=== PATIENT | female | born 1930 | race Caucasian/White ===

== ENCOUNTER 2017-02-05 14:03 | Outpatient (CLI) | payer MEDICARE, OTHER ==
--- NOTE | 2017-02-06 16:14 | Mammography Report ---
DIGITAL BILATERAL SCREENING MAMMOGRAM: 02/05/2017 COMPARISON: Mammogram of 02/05/2016. INDICATION: Screening mammography. TECHNIQUE: Routine CC and MLO projections were obtained of the breasts. FINDINGS: Scattered fibroglandular tissue is present within the breasts. There are no dominant elinor s, suspicious microcalcifications, or secondary signs of malignancy. In comparison to the previous st udies, there are no significant changes. ASSESSMENT: NO MAMMOGRAPHIC EVIDENCE OF MALIGNANCY. NO SIGNIFICANT INTERVAL CHANGES. RECOMMENDATION: Screening mammography is recommended annually. BIRADS category 1 - negative. STANDARD QUALIFYING STATEMENTS 1. This examination was reviewed with the aid of Computed-Aided Detection (CAD). 2. A negative or benign imaging report should not delay biopsy if clinically suspicious findings are present. Consider surgical consultation if warranted. More than 5% of cancers are not identified by i maging. 3. Dense breasts may obscure an underlying neoplasm. JOB #: [id number] EXT JOB #:[id number]
== END 2017-02-05 14:04 | disposition home or self-care (01) ==
LOC: DI.S 14:03
PROVIDERS: ATTEND Internal Medicine
DX: Z12.31 Encounter for screening mammogram for malignant neoplasm of breast (principal)
CPT/HCPCS: 77067

== ENCOUNTER 2018-02-19 17:13 | Outpatient (CLI) | payer MEDICARE, OTHER | END 2018-02-19 17:14 | disposition EMS.NT | LOC: EMS 17:13 | PROVIDERS: ATTEND Surgery | DX: Z04.1 Encounter for examination and observation following transport accident (principal) ==

== ENCOUNTER 2018-08-11 12:27 | Outpatient (CLI) | payer MEDICARE, OTHER ==
--- NOTE | 2018-08-11 17:36 | XRAY Report ---
Reason: CHEST PA LAT Procedure Date: 08/11/2018 Accession Number: [id number] / [id number] Procedure: XR - Chest 2 View X-Ray CPT Code: 60646 FULL RESULT: EXAM: CHEST RADIOGRAPHY EXAM DATE: 08/11/2018 01:13 PM. CLINICAL HISTORY: Nonproductive cough. COMPARISON: XR CHEST PA /LAT 12/10/2005 7:18 PM. TECHNIQUE: 2 views. FINDINGS: Lungs/Pleura: Right perihilar and right middle lobe airspace opacities are new from prior study. Clear left lung. No pneumothorax or effusion. Mediastinum: Normal heart size and mildly tortuous thoracic aorta. Other: None. IMPRESSION: Right perihilar and middle lobe airspace opacities, suspicious for pneumonia. Post treatment chest necessary to ensure clearance and to exclude underlying neoplasm. RADIA
== END 2018-08-11 12:28 | disposition home or self-care (01) ==
LOC: DI 12:27
PROVIDERS: ATTEND Internal Medicine
DX: R91.8 Other nonspecific abnormal finding of lung field (principal)
CPT/HCPCS: 71046

== ENCOUNTER 2018-08-16 09:17 | Outpatient (CLI) | payer MEDICARE, OTHER ==
--- NOTE | 2018-08-16 11:44 | Mammography Report ---
Reason: SCREENING MAMMO Procedure Date: 08/16/2018 Accession Number: [id number] / [id number] Procedure: JOESPHINE - Screening Mammo w/Eyal CPT Code: FULL RESULT: EXAM: Screening Mammo w/Eyal DATE: 08/16/2018 10:02 AM CLINICAL HISTORY: Screening examination. Family history of breast cancer in the sister at age 56. TECHNIQUE: (B) - Bilateral CC and MLO views were obtained. COMPARISON: 02/05/2017 through 02/11/2013. PARENCHYMAL PATTERN: (F) - The breast(s) demonstrate(s) diffuse fatty replacement. FINDINGS: There are no suspicious masses, calcifications, or areas of distortion. IMPRESSION: Negative examination. BI-RADS category 1. RECOMMENDATION: (ANNUAL) - Recommend routine annual screening mammography. BI-RADS CATEGORY: (1) - Negative. STANDARD QUALIFYING STATEMENTS: 1. This examination was not reviewed with the aid of Computer-Aided Detection (CAD). 2. A negative or benign imaging report should not preclude biopsy if clinically suspicious findings are present. 3. Dense breasts may obscure an underlying neoplasm. 4. This examination was reviewed with the aid of 3D breast imaging (tomosynthesis).
== END 2018-08-16 09:18 | disposition home or self-care (01) ==
LOC: DI 09:17
DX: Z12.31 Encounter for screening mammogram for malignant neoplasm of breast (principal); Z80.3 Family history of malignant neoplasm of breast
CPT/HCPCS: 77063; 77067

== ENCOUNTER 2018-08-23 11:30 | Outpatient (CLI) | payer MEDICARE, OTHER ==
--- NOTE | 2018-08-23 15:14 | XRAY Report ---
Reason: PNEUMONIA,COUGH Procedure Date: 08/23/2018 Accession Number: [id number] / [id number] Procedure: XR - Chest 2 View X-Ray CPT Code: 44157 FULL RESULT: EXAM: CHEST RADIOGRAPHY EXAM DATE: 08/23/2018 11:49 AM. CLINICAL HISTORY: Pneumonia, cough. COMPARISON: CHEST 2 VIEW 08/11/2018 1:05 PM XR CHEST PA / LAT 12/10/2005 7:18 PM. TECHNIQUE: 2 views. FINDINGS: Lungs/Pleura: There has been mild interval improvement in patchy infiltrate in the right middle lobe. There is persistent subsegmental opacity likely within the adjacent right upper lobe along the lateral minor fissure. No effusion or extraventilatory air. Mediastinum: Heart and mediastinal contours are unremarkable. Other: None. IMPRESSION: Interval improvement in right middle and upper lobe infiltrates. RADIA
== END 2018-08-23 11:31 | disposition home or self-care (01) ==
LOC: DI 11:30
PROVIDERS: ATTEND Internal Medicine
DX: J18.9 Pneumonia, unspecified organism (principal)
CPT/HCPCS: 71046

== ENCOUNTER 2019-02-14 09:31 | Outpatient (CLI) | payer MEDICARE, OTHER ==
--- NOTE | 2019-02-14 10:23 | XRAY Report ---
Reason: F/UP FLU Procedure Date: 02/14/2019 Accession Number: [id number] / [id number] Procedure: XRS - Chest 2 View X-Ray CPT Code: 88657 Final Report FULL RESULT: EXAM: CHEST RADIOGRAPHY EXAM DATE: 02/14/2019 09:53 AM. CLINICAL HISTORY: Follow up flu and pneumonia August 2018. COMPARISON: CHEST 2 VIEW 08/23/2018 11:39 AM. TECHNIQUE: 2 views. FINDINGS: Lungs/Pleura: No focal opacities evident. No pleural effusion. No pneumothorax. Normal volumes. Mediastinum: Heart and mediastinal contours are stable with calcifications of the aortic arch. Other: None. IMPRESSION: No acute airspace disease is detected. RADIA
== END 2019-02-14 09:32 | disposition home or self-care (01) ==
LOC: DI.S 09:31
PROVIDERS: ATTEND Internal Medicine
DX: J11.1 Influenza due to unidentified influenza virus with other respiratory manifestations (principal)
CPT/HCPCS: 71046

== ENCOUNTER 2019-09-26 09:12 | Outpatient (CLI) | payer MEDICARE, OTHER ==
--- NOTE | 2019-09-29 08:13 | Mammography Report ---
Reason: PRESENCE OF PROSTHETIC HEART VALVE Procedure Date: 09/26/2019 Accession Number: [id number] / [id number] Procedure: MGS - Screening Mammo Dig Bilat CPT Code: Final Report FULL RESULT: BILATERAL DIGITAL SCREENING MAMMOGRAM: 09/26/2019 Comparison is made to exams dated: 08/16/2018 mammogram, 02/05/2017 mammogram, 02/05/2016 mammogram, and 02/13/2014 mammogram - [facility]. There are scattered fibroglandular elements in both breasts. No significant masses, calcifications, or other findings are seen in either breast. There has been no significant interval change. IMPRESSION: NEGATIVE There is no mammographic evidence of malignancy. A 1 year screening mammogram is recommended. This exam was interpreted at Station ID: [id number]. NOTE: For mammograms, a report in lay terms will be sent to the patient. Approximately 15% of breast malignancies will not be visualized mammographically. In the management of a palpable breast mass, a negative mammogram must not discourage biopsy of a clinically suspicious lesion. Electronically Signed By: Bertha castañeda/quinn:09/28/2019 13:33:51 ACR BI-RADS Category 1: Negative 3341F B -Scattered fibroglandular 1 Mammogram [id number] 1 year screening B
== END 2019-09-26 09:13 | disposition home or self-care (01) ==
LOC: DI.S 09:12
DX: Z12.31 Encounter for screening mammogram for malignant neoplasm of breast (principal)
CPT/HCPCS: 77067

== ENCOUNTER 2021-05-14 09:47 | Outpatient (CLI) | payer MEDICARE, OTHER ==
--- NOTE | 2021-05-15 10:17 | Mammography Report ---
BILATERAL DIGITAL SCREENING MAMMOGRAM 3D/2D: 05/14/2021 CLINICAL: Routine screening. Family history of breast cancer. Comparison is made to exams dated: 09/26/2019 mammogram, 08/16/2018 mammogram, and 02/05/2017 mammogram - [facility]. There are scattered fibroglandular elements in both breasts. No significant masses, calcifications, or other findings are seen in either breast. There has been no significant interval change. IMPRESSION: NEGATIVE There is no mammographic evidence of malignancy. A 1 year screening mammogram is recommended. This exam was interpreted at Station ID: [id number]. NOTE: For mammograms, a report in lay terms will be sent to the patient. Approximately 15% of breast malignancies will not be visualized mammographically. In the management of a palpable breast mass, a negative mammogram must not discourage biopsy of a clinically suspicious lesion. Electronically Signed By: Bennie Fonseca M.D. ar/penrad:05/14/2021 12:52:09 ACR BI-RADS Category 1: Negative 3341F PARENCHYMAL PATTERN: (A) - The breast(s) demonstrate(s) scattered fibroglandular densities. BI-RADS CATEGORY: (1) - 1 RECOMMENDATION: (ANNUAL) - Recommend routine annual screening mammography. [id number] 1 year screening LATERALITY: (B)
== END 2021-05-14 09:48 | disposition home or self-care (01) ==
LOC: DI.S 09:47
PROVIDERS: ATTEND Internal Medicine
DX: Z12.31 Encounter for screening mammogram for malignant neoplasm of breast (principal); Z80.3 Family history of malignant neoplasm of breast

== ENCOUNTER 2022-01-13 08:00 | Outpatient (CLI) | payer MEDICARE, OTHER | END 2022-01-13 23:59 | disposition home or self-care (01) | LOC: LAB.S 08:00 | PROVIDERS: ATTEND Physician Assistant | DX: L03.115 Cellulitis of right lower limb (principal) | CPT/HCPCS: 87070; 87205 ==